=== PATIENT | female | born 1985 | race Caucasian/White ===

== ENCOUNTER → 2017-01-18 | Outpatient (CLI) | payer OTHER ==
--- NOTE | 2017-01-18 16:55 | CR ---
EXAMINATION: Bilateral knees HISTORY: Pain COMPARISON: 10/30/2016 TECHNIQUE: 4 views bilaterally FINDINGS: There is no acute osseous abnormality, dislocation, or fracture identified. Bone mineraliz ation and joint spaces appear normal. Trace suprapatellar joint fluid bilaterally. Minimal osteophyt es are noted. IMPRESSION: Grossly unremarkable knees bilaterally.
== END ==
LOC: MW.CHORTHO 07:41
PROVIDERS: ATTEND Orthopaedic Surgery
DX: M25.561 Pain in right knee (principal); M25.562 Pain in left knee
CPT/HCPCS: 735642650; 73564-50

== ENCOUNTER → 2017-01-22 | Outpatient (CLI) | payer OTHER ==
--- NOTE | 2017-01-22 16:39 | MR ---
EXAMINATION: MR right knee HISTORY: Pain COMPARISON: Radiographs dated 01/18/2017 TECHNIQUE: Multiplanar multisequence images obtained of the right knee without contrast. FINDINGS: The patellar and quadriceps tendons are intact. The ACL and the PCL appear intact. There i s mild truncation of the body of the medial meniscus, otherwise the menisci are intact. The medial a nd lateral collateral ligament complexes appear normal. There is moderate articular cartilage thinni ng along the lateral aspect of the patellofemoral compartment most notable along the lateral facet o f the patella. Subchondral cystic change and edema is noted. There is also a trace articular cartila ge thinning within the medial compartment. There is a trace joint effusion. No suspicious bone marro w signal changes noted. IMPRESSION: 1. Moderate chondromalacia patellae 2. Trace joint effusion. 3. Minimal truncation of the body of the medial meniscus. 4. Mild chondromalacia within the medial compartment.
== END ==
LOC: MW.MRI 12:10
PROVIDERS: ATTEND Orthopaedic Surgery
DX: M25.561 Pain in right knee (principal); M25.562 Pain in left knee; M22.41 Chondromalacia patellae, right knee; M25.461 Effusion, right knee
CPT/HCPCS: 73721-26-RT; 73721-RT

== ENCOUNTER 2017-02-06 16:52 | Emergency (ER) | payer OTHER ==
--- NOTE | 2017-02-06 17:19 | EDM.PDOC ---
ED HPI GENERAL MEDICAL PROBLEM - General Chief Complaint: Upper Extremity Injury/Pain Stated Complaint: PT FELL AND HURT LT ARM Time Seen by Provider: 02/06/17 17:17 Source of Information: Reports: Patient - History of Present Illness INITIAL COMMENTS - FREE TEXT/NARRATIVE: HISTORY AND PHYSICAL: History of present illness: [] Patient presents with left elbow pain /10 after falling in her regard last night denies head injury or loss of consciousness No fever nausea vomiting chills sweats History of tubal ligation Review of systems: As per history of present illness and below otherwise all systems reviewed and negative. Past medical history: As per history of present illness and as reviewed below otherwise noncontributory. Surgical history: As per history of present illness and as reviewed below otherwise noncontributory. Social history: No reported history of drug or alcohol abuse. Family history: As per history of present illness and as reviewed below otherwise noncontributory. Physical exam: HEENT: Atraumatic, normocephalic, pupils reactive, negative for conjunctival pallor or scleral icterus, mucous membranes moist, throat clear, neck supple, nontender, trachea midline. Lungs: Clear to auscultation, breath sounds equal bilaterally, chest nontender. Heart: S1S2, regular, negative for clicks, rubs, or JVD. Abdomen: Soft, nondistended, nontender. Negative for masses or hepatosplenomegaly. Negative for costovertebral tenderness. Pelvis: Stable nontender. Genitourinary: Deferred. Rectal: Deferred. Extremities: Atraumatic, negative for cords or calf pain. Neurovascular unremarkable. Left upper extremity shoulder and wrist on affected elbow full range of motion limited due to pain mild swelling entire limb neurovascularly intact no redness warmth open lesion full range of motion of elbow Neuro: Awake, alert, oriented. Cranial nerves II through XII unremarkable. Cerebellum unremarkable. Motor and sensory unremarkable throughout. Exam nonfocal. Diagnostics: [Left elbow 3 views Therapeutics: [] Rest ice ibuprofen Sling Impression: []left Elbow pain/contusion Definitive disposition and diagnosis as appropriate pending reevaluation and review of above. left elbow Pain Score (Numeric/FACES): 7 - Related Data Allergies Allergy/AdvReac Type Severity Reaction Status Date / Time No Known Allergies Allergy Verified 02/06/17 17:08 Home Meds: Home Meds buPROPion HCl [Wellbutrin Xl] 300 mg PO DAILY 10/07/15 [History] Past Medical History Psychiatric History: Reports: Depression - Past Surgical History Female Surgical History: Reports: Section, D&C, Tubal Ligation Social & Family History - Family History Family Medical History: Noncontributory Endocrine/Metabolic: Reports: Diabetes, type II - Tobacco Use Smoking Status *Q: Current Every Day Smoker Years of Tobacco use: 10 Packs/Tins Daily: 1 Second Hand Smoke Exposure: No - Caffeine Use Caffeine Use: Reports: Coffee, Tea Caffeine Use Comment: 2 cups daily - Recreational Drug Use Recreational Drug Use: No Review of Systems - Review of Systems Review Of Systems: ROS reveals no pertinent complaints other than HPI. Trauma Exam - Physical Exam Exam: See Below Course - Vital Signs Last Recorded V/S: Last Vital Signs Temp 36.8 C 02/06/17 17:09 Pulse 67 02/06/17 17:09 Resp 18 02/06/17 17:09 BP 149/82 H 02/06/17 17:09 Pulse Ox 100 02/06/17 17:09 - Orders/Labs/Meds Orders: Active Orders 24 hr Category Date Time Status Elbow Min 3V Lt [CR] Stat Exams 02/06/17 17:16 Taken Departure - Departure Time of Disposition: 19:08 Disposition: Home, Self-Care 01 Condition: good Clinical Impression: Contusion - Discharge Information Forms: ED Department Discharge Additional Instructions: Sling for comfort Ice 20 minute intervals 3 times daily 7-10 days Ibuprofen 4-800 mg 3 times daily 7-10 days Followup with primary care in 2 weeks sooner as needed The following information is given to patients seen in the emergency department who are being discharged to home. This information is to outline your options for follow-up care. We provide all patients seen in our emergency department with a follow-up referral. The need for follow-up, as well as the timing and circumstances, are variable depending upon the specifics of your emergency department visit. If you don't have a primary care physician on staff, we will provide you with a referral. We always advise you to contact your personal physician following an emergency department visit to inform them of the circumstance of the visit and for follow-up with them and/or the need for any referrals to a consulting specialist. The emergency department will also refer you to a specialist when appropriate. This referral assures that you have the opportunity for follow-up care with a specialist. All of these measure are taken in an effort to provide you with optimal care, which includes your follow-up. Under all circumstances we always encourage you to contact your private physician who remains a resource for coordinating your care. When calling for follow-up care, please make the office aware that this follow-up is from your recent emergency room visit. If for any reason you are refused follow-up, please contact the [facility] emergency department at and asked to speak to the emergency department charge nurse. - My Orders Last 24 Hours: My Active Orders 02/06/17 17:16 Elbow Min 3V Lt [CR] Stat - Assessment/Plan Last 24 Hours: My Active Orders 02/06/17 17:16 Elbow Min 3V Lt [CR] Stat
[2017-02-06 22:34] VITALS: BP 127/79
--- NOTE | 2017-02-07 10:12 | CR ---
EXAM DATE: 02/06/17 PATIENT'S AGE: 31 Patient: ZOHRA KIM Facility: [place], [place] Site . Site : 1985 Study: XRay Extremity elbow [id number]/30/2017 5:54:32 PM Ordering Physician: Lonnie Adhikari Final Report: INDICATION: fall TECHNIQUE: Three views of the left elbow COMPARISON: None FINDINGS: Bones: Alignment is normal. No fractures or bone lesions. Joint spaces: Unremarkable. Soft tissues: Unremarkable. IMPRESSION: No acute bony abnormality. Dictated by Dustin Deleon MD @ 02/06/2017 6:35:13 PM Dictated by: Dustin Deleon MD @ 02/06/2017 18:35:30 (Electronic Signature) Report Signed by Proxy. SYDENHAM HOSPITALGerardo
== END 2017-02-06 19:26 | disposition home or self-care (01) ==
LOC: MW.ED 16:52
DX: S50.02XA Contusion of left elbow, initial encounter (principal); F32.9 Major depressive disorder, single episode, unspecified; F17.210 Nicotine dependence, cigarettes, uncomplicated; Z79.899 Other long term (current) drug therapy; Z98.51 Tubal ligation status; Z98.890 Other specified postprocedural states; W19.XXXA Unspecified fall, initial encounter
CPT/HCPCS: 73080; 99283; A4566; 99282

== ENCOUNTER 2018-10-27 12:07 | Emergency (ER) | payer OTHER ==
[2018-10-27] MEDS ORDERED: Sodium Chloride 0.9% 1,000 ML IV ONE (12:11)
[2018-10-27] MEDS ORDERED: Ketorolac 30 MG/ML SDV IVPUSH ONE (12:12)
[2018-10-27] MEDS ORDERED: Ondansetron 4 MG/2 ML SDV IVPUSH ONE (12:12)
--- NOTE | 2018-10-27 12:34 | EDM.PDOC ---
ED HPI GENERAL MEDICAL PROBLEM - General Chief Complaint: Chest Pain Stated Complaint: CHEST PAIN Time Seen by Provider: 10/27/18 12:11 Source of Information: Reports: Patient History Limitations: Reports: No Limitations - History of Present Illness INITIAL COMMENTS - FREE TEXT/NARRATIVE: HISTORY AND PHYSICAL: History of present illness: Patient is a 33-year-old female who presents to the ED today with sudden onset of sharp chest pain. Patient states she was sitting on her couch about an hour prior to arrival to the ED when suddenly she felt a sharp pressure in her left upper chest. She states the sharp radiated down her left arm and up into her face where she felt like "her face went numb". Patient states that in the ED today she does not have that numb feeling or the pain in the arm but still has a sharp chest pain. She rates the chest pain a 5 out of 10. Sensation states she 's never had pain like this before. Patient does say that she has had panic attacks in the past but this feels different to her. Patient states she is not able to re-create her pain through any position or pressing upper chest. She is not able to illicit the pain if she takes a deep breath. Patient denies shortness of breath, headache, visual changes, difficulties breathing, diaphoresis, nausea, vomiting, fever, chills, change in bowel habits , or all other GI of symptoms. She does have a history of anxiety, depression, and GERD. She is currently on medications for these for which she sees her primary care provider, Dr. Lai. Review of systems: As per history of present illness and below otherwise all systems reviewed and negative. Past medical history: As per history of present illness and as reviewed below otherwise noncontributory. Surgical history: As per history of present illness and as reviewed below otherwise noncontributory. Social history: See social history for further information Family history: As per history of present illness and as reviewed below otherwise noncontributory. Physical exam: General: Patient is alert, oriented, and in no acute distress. She is mildly anxious appearing but is lying comfortably on exam table. HEENT: Atraumatic, normocephalic, pupils equal and reactive bilaterally, negative for conjunctival pallor or scleral icterus, mucous membranes moist, TMs normal bilaterally, throat clear, neck supple, nontender, trachea midline. No drooling or trismus noted. No meningeal signs. No hot potato voice noted. Lungs: Clear to auscultation, breath sounds equal bilaterally, chest nontender. Heart: S1S2, regular rate and rhythm without overt murmur Abdomen: Obese, soft, nondistended, nontender. Negative for masses or hepatosplenomegaly. Negative for costovertebral tenderness. Pelvis: Stable nontender. Genitourinary: Deferred. Rectal: Deferred. Skin: Intact, warm, dry. No lesions or rashes noted. Extremities: Atraumatic, negative for cords or calf pain. Neurovascular unremarkable. Neuro: Awake, alert, oriented. Cranial nerves II through XII unremarkable. Cerebellum unremarkable. Motor and sensory unremarkable throughout. Exam nonfocal. Notes: On exam, patient is mildly anxious appearing but otherwise unremarkable exam. Will work up for cardio/chest pain. Lab work is unremarkable. Chest x-ray shows no acute findings. Patient continues to have chest pain, did not have relief with the nitroglycerin. Declined after one tablet. Admission was offered to the patient, at this time she declines. She does state she does still feel anxious, when dose of Ativan given by mouth. She does have a ride home. She will follow closely with her primary care provider, Dr. Lai. Supportive care measures were reviewed and discussed. Voices understanding and is agreeable to plan of care. Denies any further questions or concerns at this time. Diagnostics: CBC, CMP, EKG, troponin, chest x-ray, tsh, ua, urine hcg Therapeutics: Toradol, Zofran, Saline, Ativan, Nitropaste Prescription: None Impression: 1. Chest pain, unspecified 2. Anxiety 3. Early UTI Plan: 1. Please start a baby aspirin 81 mg once daily. Increase your oral fluids. You can take Tylenol or ibuprofen as needed for pain or discomfort. 2. Please use your home anxiety medication as needed as we discussed. Prescription for an antibiotic to treat UTI has been given to you, fill and take as we discussed. 3. Follow-up with your primary care provider (Dr. Ruth) in the next 1-2 days. Return to the ED as needed and as discussed. Definitive disposition and diagnosis as appropriate pending reevaluation and review of above. chest Pain Score (Numeric/FACES): 5 - Related Data Allergies Allergy/AdvReac Type Severity Reaction Status Date / Time No Known Allergies Allergy Verified 10/27/18 12:09 Home Meds: Home Meds buPROPion HCl [Wellbutrin Xl] 300 mg PO DAILY 10/07/15 [History] Escitalopram [Lexapro] 10 mg PO DAILY 08/05/18 [History] Omeprazole 40 mg PO DAILY 08/05/18 [History] Past Medical History - Past Health History Medical/Surgical History: Denies Medical/Surgical History HEENT History: Reports: None Cardiovascular History: Reports: None Gastrointestinal History: Reports: None Genitourinary History: Reports: None 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: , 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 Musculoskeletal History: Reports: None Neurological History: Reports: None Psychiatric History: Reports: Depression Endocrine/Metabolic History: Reports: None Hematologic History: Reports: None Immunologic History: Reports: None Oncologic (Cancer) History: Reports: None Dermatologic History: Reports: None - Infectious Disease History Infectious Disease History: Reports: Chicken Pox - Past Surgical History Head Surgeries/Procedures: Reports: None HEENT Surgical History: Reports: Adenoidectomy, Tonsillectomy Cardiovascular Surgical History: Reports: None Respiratory Surgical History: Reports: None GI Surgical History: Reports: Appendectomy, Cholecystectomy Female Surgical History: Reports: Section, D&C, Tubal Ligation Endocrine Surgical History: Reports: None Neurological Surgical History: Reports: None Musculoskeletal Surgical History: Reports: None Oncologic Surgical History: Reports: None Dermatological Surgical History: Reports: None Social & Family History - Family History Family Medical History: Noncontributory Endocrine/Metabolic: Reports: Diabetes, type II - Tobacco Use Smoking Status *Q: Current Every Day Smoker Years of Tobacco use: 15 Packs/Tins Daily: 0.4 - Caffeine Use Caffeine Use: Reports: Coffee, Tea Caffeine Use Comment: 2 cups daily - Recreational Drug Use Recreational Drug Use: No ED ROS GENERAL - Review of Systems Review Of Systems: ROS reveals no pertinent complaints other than HPI. ED EXAM, GENERAL - Physical Exam Exam: See Below (See dictation) Course - Vital Signs Last Recorded V/S: Last Vital Signs Temp 98.6 F 10/27/18 12:10 Pulse 84 10/27/18 13:28 Resp 18 10/27/18 12:10 BP 158/97 H 10/27/18 13:28 Pulse Ox 99 10/27/18 12:10 - Orders/Labs/Meds Orders: Active Orders 24 hr Category Date Time Status EKG Documentation Completion [RC] STAT Care 10/27/18 12:11 Active EKG Documentation Completion [RC] STAT Care 10/27/18 12:37 Active CULTURE URINE [RM] Stat Lab 10/27/18 13:38 Received Nitroglycerin [Nitrostat] Med 10/27/18 13:13 Active 0.4 mg SL Q5M PRN Medication Orders Nitroglycerin (Nitrostat) 0.4 mg SL Q5M PRN PRN Reason: Chest Pain Last Admin: 10/27/18 13:22 Dose: 0.4 mg Labs: Laboratory Tests 10/27/18 10/27/18 10/27/18 Range/Units 12:23 12:23 13:33 WBC 9.71 (4.0-11.0) K/uL RBC 4.45 (4.30-5.90) M/uL Hgb 13.0 (12.0-16.0) g/dL Hct 39.3 (36.0-46.0) % MCV 88.3 (80.0-98.0) fL MCH 29.2 (27.0-32.0) pg MCHC 33.1 (31.0-37.0) g/dL RDW Std Deviation 44.8 (28.0-62.0) fl RDW Coeff of Amos 14 (11.0-15.0) % Plt Count 324 (150-400) K/uL MPV 10.10 (7.40-12.00) fL Neut % (Auto) 64.2 (48.0-80.0) % Lymph % (Auto) 27.5 (16.0-40.0) % Hodgeman % (Auto) 6.8 (0.0-15.0) % Eos % (Auto) 1.2 (0.0-7.0) % Baso % (Auto) 0.3 (0.0-1.5) % Neut # (Auto) 6.2 H (1.4-5.7) K/uL Lymph # (Auto) 2.7 H (0.6-2.4) K/uL Hodgeman # (Auto) 0.7 (0.0-0.8) K/uL Eos # (Auto) 0.1 (0.0-0.7) K/uL Baso # (Auto) 0.0 (0.0-0.1) K/uL Nucleated RBC % 0.0 /100WBC Nucleated RBCs # 0 K/uL Sodium 136 (136-145) mmol/L Potassium 4.0 (3.5-5.1) mmol/L Chloride 103 (98-107) mmol/L Carbon Dioxide 25.5 (21.0-32.0) mmol/L BUN 15 (7.0-18.0) mg/dL Creatinine 0.9 (0.6-1.0) mg/dL Est Cr Clr Drug Dosing 88.01 mL/min Estimated GFR (MDRD) > 60.0 ml/min Glucose 102 (74-106) mg/dL Calcium 9.1 (8.5-10.1) mg/dL Total Bilirubin 0.3 (0.2-1.0) mg/dL AST 13 L (15-37) IU/L ALT 19 (14-63) IU/L Alkaline Phosphatase 65 (46-116) U/L Troponin I < 0.050 (0.000-0.056) ng/mL Total Protein 7.2 (6.4-8.2) g/dL Albumin 3.7 (3.4-5.0) g/dL Globulin 3.5 (2.6-4.0) g/dL Albumin/Globulin Ratio 1.1 (0.9-1.6) TSH 3rd Generation 2.41 (0.36-3.74) uIU/mL Urine Color Urine Appearance Urine pH (5.0-8.0) Ur Specific [place] (1.001-1.035) Urine Protein (NEGATIVE) mg/dL Urine Glucose (UA) (NEGATIVE) mg/dL Urine Ketones (NEGATIVE) mg/dL Urine Occult Blood (NEGATIVE) Urine Nitrite (NEGATIVE) Urine Bilirubin (NEGATIVE) Urine Urobilinogen (<2.0) EU/dL Ur Leukocyte Esterase (NEGATIVE) Urine RBC (0-2/HPF) Urine WBC (0-5/HPF) Ur Epithelial Cells (NONE-FEW) Urine Bacteria (NEGATIVE) Urine Mucus (NONE-MOD) Urine HCG, Qual NEGATIVE (NEGATIVE) 10/27/18 Range/Units 13:38 WBC (4.0-11.0) K/uL RBC (4.30-5.90) M/uL Hgb (12.0-16.0) g/dL Hct (36.0-46.0) % MCV (80.0-98.0) fL MCH (27.0-32.0) pg MCHC (31.0-37.0) g/dL RDW Std Deviation (28.0-62.0) fl RDW Coeff of Amos (11.0-15.0) % Plt Count (150-400) K/uL MPV (7.40-12.00) fL Neut % (Auto) (48.0-80.0) % Lymph % (Auto) (16.0-40.0) % Hodgeman % (Auto) (0.0-15.0) % Eos % (Auto) (0.0-7.0) % Baso % (Auto) (0.0-1.5) % Neut # (Auto) (1.4-5.7) K/uL Lymph # (Auto) (0.6-2.4) K/uL Hodgeman # (Auto) (0.0-0.8) K/uL Eos # (Auto) (0.0-0.7) K/uL Baso # (Auto) (0.0-0.1) K/uL Nucleated RBC % /100WBC Nucleated RBCs # K/uL Sodium (136-145) mmol/L Potassium (3.5-5.1) mmol/L Chloride (98-107) mmol/L Carbon Dioxide (21.0-32.0) mmol/L BUN (7.0-18.0) mg/dL Creatinine (0.6-1.0) mg/dL Est Cr Clr Drug Dosing mL/min Estimated GFR (MDRD) ml/min Glucose (74-106) mg/dL Calcium (8.5-10.1) mg/dL Total Bilirubin (0.2-1.0) mg/dL AST (15-37) IU/L ALT (14-63) IU/L Alkaline Phosphatase (46-116) U/L Troponin I (0.000-0.056) ng/mL Total Protein (6.4-8.2) g/dL Albumin (3.4-5.0) g/dL Globulin (2.6-4.0) g/dL Albumin/Globulin Ratio (0.9-1.6) TSH 3rd Generation (0.36-3.74) uIU/mL Urine Color YELLOW Urine Appearance CLEAR Urine pH 6.0 (5.0-8.0) Ur Specific [place] <= 1.005 (1.001-1.035) Urine Protein NEGATIVE (NEGATIVE) mg/dL Urine Glucose (UA) NEGATIVE (NEGATIVE) mg/dL Urine Ketones NEGATIVE (NEGATIVE) mg/dL Urine Occult Blood TRACE-INTACT H (NEGATIVE) Urine Nitrite NEGATIVE (NEGATIVE) Urine Bilirubin NEGATIVE (NEGATIVE) Urine Urobilinogen 0.2 (<2.0) EU/dL Ur Leukocyte Esterase SMALL H (NEGATIVE) Urine RBC 0-2 (0-2/HPF) Urine WBC 2-4 (0-5/HPF) Ur Epithelial Cells FEW (NONE-FEW) Urine Bacteria FEW (NEGATIVE) Urine Mucus FEW (NONE-MOD) Urine HCG, Qual (NEGATIVE) Meds: Medications Generic Name Dose Route Start Last Admin Trade Name Freq PRN Reason Stop Dose Admin Nitroglycerin 0.4 mg 10/27/18 13:13 10/27/18 13:22 Nitrostat SL 0.4 mg Q5M PRN Administration Chest Pain Discontinued Medications Generic Name Dose Route Start Last Admin Trade Name Freq PRN Reason Stop Dose Admin Sodium Chloride 1,000 mls @ 999 mls/hr 10/27/18 12:11 10/27/18 12:21 Normal Saline IV 10/27/18 13:11 999 mls/hr STAT ONE Administration Ketorolac Tromethamine 30 mg 10/27/18 12:12 10/27/18 12:21 Toradol IVPUSH 10/27/18 12:13 30 mg ONETIME ONE Administration Lorazepam 0.5 mg 10/27/18 13:32 10/27/18 13:48 Ativan PO 10/27/18 13:33 0.5 mg ONETIME ONE Administration Ondansetron HCl 4 mg 10/27/18 12:12 10/27/18 12:21 Zofran IVPUSH 10/27/18 12:13 4 mg ONETIME ONE Administration Departure - Departure Time of Disposition: 14:10 Disposition: Home, Self-Care 01 Clinical Impression: Nonspecific chest pain, Urinary tract infection, Anxiety Instructions: Nonspecific Chest Pain, [id number] Referrals: PCP,Unknown [Primary Care Provider] - Forms: ED Department Discharge Additional Instructions: The following information is given to patients seen in the emergency department who are being discharged to home. This information is to outline your options for follow-up care. We provide all patients seen in our emergency department with a follow-up referral. The need for follow-up, as well as the timing and circumstances, are variable depending upon the specifics of your emergency department visit. If you don't have a primary care physician on staff, we will provide you with a referral. We always advise you to contact your personal physician following an emergency department visit to inform them of the circumstance of the visit and for follow-up with them and/or the need for any referrals to a consulting specialist. The emergency department will also refer you to a specialist when appropriate. This referral assures that you have the opportunity for follow-up care with a specialist. All of these measure are taken in an effort to provide you with optimal care, which includes your follow-up. Under all circumstances we always encourage you to contact your private physician who remains a resource for coordinating your care. When calling for follow-up care, please make the office aware that this follow-up is from your recent emergency room visit. If for any reason you are refused follow-up, please contact the [facility] Emergency Department at and asked to speak to the emergency department charge nurse. [facility] Primary Care: Cardiology (Dr Rutledge) [address] [place] [address] [place] [address] 1. Please start a baby aspirin 81 mg once daily. Increase your oral fluids. You can take Tylenol or ibuprofen as needed for pain or discomfort. 2. Please use your home anxiety medication as needed as we discussed. Prescription for an antibiotic to treat UTI has been given to you, fill and take as we discussed. 3. Follow-up with your primary care provider (Dr. Ruth) in the next 1-2 days. Return to the ED as needed and as discussed. - My Orders Last 24 Hours: My Active Orders 10/27/18 12:11 EKG Documentation Completion [RC] STAT 10/27/18 12:37 EKG Documentation Completion [RC] STAT 10/27/18 13:13 Nitroglycerin [Nitrostat] 0.4 mg SL Q5M PRN 10/27/18 13:38 CULTURE URINE [RM] Stat - Assessment/Plan Last 24 Hours: My Active Orders 10/27/18 12:11 EKG Documentation Completion [RC] STAT 10/27/18 12:37 EKG Documentation Completion [RC] STAT 10/27/18 13:13 Nitroglycerin [Nitrostat] 0.4 mg SL Q5M PRN 10/27/18 13:38 CULTURE URINE [RM] Stat
[2018-10-27 12:58] LABS: CHLORIDE,CL 103 mmol/L (98-107); SODIUM,NA 136 mmol/L (136-145)
[2018-10-27] MEDS ORDERED: Nitroglycerin 0.4 MG Tab.SL SL PRN (13:13)
[2018-10-27] MEDS ORDERED: LORazepam 0.5 MG Tab PO ONE (13:32)
--- NOTE | 2018-10-27 13:44 | CR ---
HISTORY: Chest pain. FINDINGS: Single AP view of the chest is provided. The lung volumes appear slightly diminished. The lungs are clear and there is no evidence for pleural effusion or pneumothorax. Cardiac silhouette size appears enlarged but this could be due to a magnification from AP technique. IMPRESSION: Clear lungs. Dictated by Johann Keller MD @ Oct 27 2018 1:43PM Signed by Dr. Johann Keller @ Oct 27 2018 1:44PM
[2018-10-27 14:42] VITALS: BP 141/92
== END 2018-10-27 14:38 | disposition home or self-care (01) ==
LOC: MW.ED 12:07
DX: R07.9 Chest pain, unspecified (principal); F41.9 Anxiety disorder, unspecified; N39.0 Urinary tract infection, site not specified; F32.9 Major depressive disorder, single episode, unspecified; F17.210 Nicotine dependence, cigarettes, uncomplicated; Z79.899 Other long term (current) drug therapy
CPT/HCPCS: 36415; 71045; 80053; 81001; 81025; 84443; 84484; 85025; 87086; 93005; 96361; 96374; 96375; 99285; A9270; J1885; J2405; J7040

== ENCOUNTER 2021-07-11 08:54 | Emergency (ER) | payer BC, OTHER ==
[2021-07-11] MEDS ORDERED: Sodium Chloride 0.9% 2.5 ML Syringe FLUSH PRN (09:34)
[2021-07-11] MEDS ORDERED: Sodium Chloride 0.9% 10 ML Syringe FLUSH PRN (09:34)
[2021-07-11] MEDS ORDERED: Ondansetron 4 MG/2 ML SDV IVPUSH ONE (09:35)
[2021-07-11] MEDS ORDERED: Alum Hydro/Mag Hydro/Simeth XS 15 ML, Lidocaine 2% 5 ML PO ONE ×2 (09:35)
--- NOTE | 2021-07-11 09:38 | EDM.PDOC ---
ED HPI GENERAL MEDICAL PROBLEM - General Chief Complaint: Abdominal Pain Stated Complaint: UPPER ABDOMINAL PAIN Time Seen by Provider: 07/11/21 09:28 - History of Present Illness INITIAL COMMENTS - FREE TEXT/NARRATIVE: 35-year-old female history of hypertension status post cholecystectomy in 2006 also status post appendectomy and partial hysterectomy who is presenting with epigastric pain. Patient woke up with sharp epigastric pain radiating to the right upper quadrant approximately 48 hours ago. It is associated with nausea but no vomiting. Patient has chronic and stable diarrhea. No lower abdominal symptoms and no fever. Symptoms worsen when she sits up they also worsen with any p.o. intake. This morning she tried to have her usual coffee and became incredibly nauseous and her pain worsened as she was trying to drink it. Patient does drink red wine regularly approximately 3 glasses each day. Pain currently moderate Right Upper Abdomen Pain Score (Numeric/FACES): 5 4 Pain Score (Numeric/FACES): 4 - Related Data Allergies Allergy/AdvReac Type Severity Reaction Status Date / Time No Known Allergies Allergy Verified 10/27/18 12:09 Home Meds: Home Meds buPROPion HCL [Wellbutrin Xl] 300 mg PO DAILY 10/07/15 [History] Escitalopram [Lexapro] 10 mg PO DAILY 08/05/18 [History] Omeprazole 40 mg PO DAILY 08/05/18 [History] Dicyclomine [Bentyl] 20 mg PO QIDACANDBED PRN 7 Days #28 tab 07/11/21 [Rx] Omeprazole 20 mg PO DAILY #7 javon. 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 Musculoskeletal History: Reports: None Neurological History: Reports: None Psychiatric History: Reports: Depression Endocrine/Metabolic History: Reports: None Hematologic History: Reports: None Immunologic History: Reports: None Oncologic (Cancer) History: Reports: None Dermatologic History: Reports: None - Infectious Disease History Infectious Disease History: Reports: Chicken Pox - Past Surgical History Head Surgeries/Procedures: Reports: None HEENT Surgical History: Reports: Adenoidectomy, Tonsillectomy Cardiovascular Surgical History: Reports: None Respiratory Surgical History: Reports: None GI Surgical History: Reports: Appendectomy, Cholecystectomy Female Surgical History: Reports: Section, D&C, Tubal Ligation Endocrine Surgical History: Reports: None Neurological Surgical History: Reports: None Musculoskeletal Surgical History: Reports: None Oncologic Surgical History: Reports: None Dermatological Surgical History: Reports: None Social & Family History - Family History Family Medical History: No Pertinent Family History Endocrine/Metabolic: Reports: Diabetes, type II - Caffeine Use Caffeine Use: Reports: Coffee, Tea Caffeine Use Comment: 2 cups daily ED ROS GENERAL - Review of Systems Review Of Systems: See Below Free Text/Narrative/Comment: General: No fever. Skin: No rash. Eyes: No vision problems. ENT: No sore throat. Neck: No neck stiffness. Respiratory: No shortness of breath. Cardiac: No chest pain. Gastrointestinal: Per HPI Urinary: No dysuria. Musculoskeletal: No myalgias/arthralgias. Neurologic: No headache. ED EXAM, GENERAL - Physical Exam Exam: See Below Free Text/Narrative:: General Appearance: No acute distress, appears comfortable Skin: No rash HEENT: Normocephalic/atraumatic, sclera anicteric, mucous membranes moist Neck: Normal range of motion Chest and Lungs: Bilateral breath sounds, clear to auscultation Cardiovascular: Regular rate and rhythm Abdomen: Soft, epigastric and right upper quadrant tenderness without guarding or rebound Musculoskeletal: No edema or tenderness Neurologic: Awake, alert, no obvious deficits, moving all extremities Psychiatric: Appropriate, cooperative #1 Interpretation EKG Date: 07/11/21 Time: 10:46 EKG Interpretation Comments: Sinus rhythm rate of 76 normal axis and intervals no acute ischemia normal EKG Course - Vital Signs Last Recorded V/S: Last Vital Signs Temp 96.8 F L 07/11/21 09:33 Pulse 69 07/11/21 11:12 Resp 16 07/11/21 11:12 BP 124/71 07/11/21 11:12 Pulse Ox 98 07/11/21 11:12 - Orders/Labs/Meds Orders: Active Orders 24 hr Category Date Time Status Sodium Chloride 0.9% [Saline Flush] Med 07/11/21 09:34 Active 10 ml FLUSH ASDIRECTED PRN Sodium Chloride 0.9% [Saline Flush] Med 07/11/21 09:34 Active 2.5 ml FLUSH ASDIRECTED PRN Saline Lock Insert [OM.PC] Stat Oth 07/11/21 09:34 Ordered Medication Orders Sodium Chloride (Sodium Chloride 0.9% 10 Ml Syringe) 10 ml FLUSH ASDIRECTED PRN PRN Reason: Keep Vein Open Last Admin: 07/11/21 09:48 Dose: 10 ml Documented by: JANELLE Sodium Chloride (Sodium Chloride 0.9% 2.5 Ml Syringe) 2.5 ml FLUSH ASDIRECTED PRN PRN Reason: Keep Vein Open Last Admin: 07/11/21 09:48 Dose: 2.5 ml Documented by: JANELLE Labs: Laboratory Tests 07/11/21 07/11/21 Range/Units 10:10 10:10 WBC 12.52 H (4.0-11.0) K/uL RBC 4.47 (4.30-5.90) M/uL Hgb 12.9 (12.0-16.0) g/dL Hct 39.3 (36.0-46.0) % MCV 87.9 (80.0-98.0) fL MCH 28.9 (27.0-32.0) pg MCHC 32.8 (31.0-37.0) g/dL RDW Std Deviation 47.5 (28.0-62.0) fl RDW Coeff of Amos 15 (11.0-15.0) % Plt Count 413 H (150-400) K/uL MPV 10.20 (7.40-12.00) fL Neut % (Auto) 71.2 (48.0-80.0) % Lymph % (Auto) 21.0 (16.0-40.0) % [place] % (Auto) 6.0 (0.0-15.0) % Eos % (Auto) 1.4 (0.0-7.0) % Baso % (Auto) 0.4 (0.0-1.5) % Neut # (Auto) 8.9 H (1.4-5.7) K/uL Lymph # (Auto) 2.6 H (0.6-2.4) K/uL [place] # (Auto) 0.8 (0.0-0.8) K/uL Eos # (Auto) 0.2 (0.0-0.7) K/uL Baso # (Auto) 0.1 (0.0-0.1) K/uL Nucleated RBC % 0.0 /100WBC Nucleated RBCs # 0 K/uL Sodium 135 L (136-145) mmol/L Potassium 4.4 (3.5-5.1) mmol/L Chloride 100 (98-107) mmol/L Carbon Dioxide 26.1 (21.0-32.0) mmol/L BUN 17 (7.0-18.0) mg/dL Creatinine 1.0 (0.6-1.0) mg/dL Est Cr Clr Drug Dosing 77.70 mL/min Estimated GFR (MDRD) > 60.0 ml/min Glucose 108 H (74-106) mg/dL Calcium 8.7 (8.5-10.1) mg/dL Total Bilirubin 0.3 (0.2-1.0) mg/dL AST 24 (15-37) IU/L ALT 44 (14-63) IU/L Alkaline Phosphatase 69 (46-116) U/L Troponin I < 0.050 (0.000-0.056) ng/mL Total Protein 7.8 (6.4-8.2) g/dL Albumin 3.3 L (3.4-5.0) g/dL Globulin 4.5 H (2.6-4.0) g/dL Albumin/Globulin Ratio 0.7 L (0.9-1.6) Lipase 50 L (73-393) U/L Meds: Medications Generic Name Dose Route Start Last Admin Trade Name Freq PRN Reason Stop Dose Admin Sodium Chloride 10 ml 07/11/21 09:34 07/11/21 09:48 Sodium Chloride 0.9% 10 Ml Syringe FLUSH 10 ml ASDIRECTED PRN Administration Keep Vein Open Sodium Chloride 2.5 ml 07/11/21 09:34 07/11/21 09:48 Sodium Chloride 0.9% 2.5 Ml Syringe FLUSH 2.5 ml ASDIRECTED PRN Administration Keep Vein Open Discontinued Medications Generic Name Dose Route Start Last Admin Trade Name Freq PRN Reason Stop Dose Admin Alum Fowler/Mag Fowler/Simeth XS 0 ml 07/11/21 09:35 07/11/21 09:47 15 ml/ Lidocaine HCl 5 ml PO 07/11/21 09:36 20 each ONETIME ONE Administration Iopamidol 100 ml 07/11/21 12:05 07/11/21 12:06 Iopamidol 755 Mg/Ml 500 Ml Multipack Bottle IVPUSH 07/11/21 12:06 100 ml ONETIME STA Administration Morphine Sulfate 4 mg 07/11/21 10:53 07/11/21 11:10 Morphine 4 Mg/Ml Vial IVPUSH 07/11/21 10:54 4 mg ONETIME ONE Administration Ondansetron HCl 4 mg 07/11/21 09:35 07/11/21 09:47 Ondansetron 4 Mg/2 Ml Sdv IVPUSH 07/11/21 09:36 4 mg ONETIME ONE Administration Departure - Departure Time of Disposition: 13:19 Disposition: Home, Self-Care 01 Condition: Good Clinical Impression: Gastroenteritis - Discharge Information *PRESCRIPTION DRUG MONITORING PROGRAM REVIEWED*: Not Applicable *COPY OF PRESCRIPTION DRUG MONITORING REPORT IN PATIENT HAMIDA: Not Applicable Prescriptions: Dicyclomine [Bentyl] 20 mg PO QIDACANDBED PRN 7 Days #28 tab PRN Reason: Abdominal Pain Omeprazole 20 mg PO DAILY #7 capsule. Ondansetron [Zofran ODT] 4 mg PO Q6H PRN 7 Days #21 tab.dis PRN Reason: Nausea Instructions: Abdominal Pain, Adult, [id number] Referrals: Bekah Marie DO [Primary Care Provider] - Forms: ED Department Discharge Additional Instructions: Your labs today were good showed no abnormalities in your liver your pancreas. The chest x-ray showed no signs of pneumonia or problems with your heart or lungs. The CT scan showed no signs of a bowel obstruction or any severe infectious process in your abdomen. Because this evaluation has been reassuring it is most likely that your symptoms are due to viral enteritis. Typically the symptoms run their course over the few days. I encourage you to take the acid suppression medicine for the next week as well as the Zofran as you need to for nausea and the bentyl to help with your abdominal pain. I encourage you to avoid alcohol and caffeine and stick with more basic and bland foods. If your symptoms worsen or you have any other new symptoms that concern you please call your doctor or return to the ER. Otherwise please follow-up with your primary care doctor. If you do not have a primary care doctor you can follow-up at one of the primary clinics listed below. [facility] [address] [place] [id number] [facility] [address] [place] [id number] The following information is given to patients seen in the emergency department who are being discharged to home. This information is to outline your options for follow-up care. We provide all patients seen in our emergency department with a follow-up referral. The need for follow-up, as well as the timing and circumstances, are variable depending upon the specifics of your emergency department visit. If you don't have a primary care physician on staff, we will provide you with a referral. We always advise you to contact your personal physician following an emergency department visit to inform them of the circumstance of the visit and for follow-up with them and/or the need for any referrals to a consulting specialist. The emergency department will also refer you to a specialist when appropriate. This referral assures that you have the opportunity for follow-up care with a specialist. All of these measure are taken in an effort to provide you with optimal care, which includes your follow-up. Under all circumstances we always encourage you to contact your private physician who remains a resource for coordinating your care. When calling for follow-up care, please make the office aware that this follow-up is from your recent emergency room visit. If for any reason you are refused follow-up, please contact the [facility] Emergency Department at and asked to speak to the emergency department charge nurse. Sepsis Event Note (ED) - Focused Exam Vital Signs: Vital Signs Temp Pulse Resp BP Pulse Ox 07/11/21 11:12 69 16 124/71 98 07/11/21 09:33 96.8 F L 07/11/21 09:32 96.3 F L 88 18 154/89 H 99 - My Orders Last 24 Hours: My Active Orders 07/11/21 09:34 Sodium Chloride 0.9% [Saline Flush] 10 ml FLUSH ASDIRECTED PRN Sodium Chloride 0.9% [Saline Flush] 2.5 ml FLUSH ASDIRECTED PRN Saline Lock Insert [OM.PC] Stat - Assessment/Plan Last 24 Hours: My Active Orders 07/11/21 09:34 Sodium Chloride 0.9% [Saline Flush] 10 ml FLUSH ASDIRECTED PRN Sodium Chloride 0.9% [Saline Flush] 2.5 ml FLUSH ASDIRECTED PRN Saline Lock Insert [OM.PC] Stat Assessment:: 35-year-old female presenting with signs and symptoms that seem most consistent with gastritis or peptic ulcer disease. Zofran will be given followed by GI cocktail and will assess response. Pancreatitis is a consideration as well hepatitis is a consideration though felt less likely CBC, CMP, lipase are pending. Patient status post appendectomy hysterectomy no lower abdominal symptoms that would suggest gynecologic pathology. No cough no fever though inferior pulmonary symptoms of been considered as well and chest x-ray pending. Cardiac symptoms very unlikely but given her hypertension and her age EKG and troponin pending. Symptoms of been constant for 2 days so single troponin would be sufficient to rule out ACS. 1320: Labs showed minimal leukocytosis but are otherwise unremarkable with no transaminitis. CT scan shows no acute findings. Patient's pain is somewhat improved but still present. Given the negative work-up at this point I would favor a gastroenteritis as the cause of the patient's symptoms. Recommended twice daily acid suppression Zofran as needed for nausea and primary care follow-up. No negation for admission at this point.
--- NOTE | 2021-07-11 10:36 | CR ---
INDICATION: Epigastric pain. TECHNIQUE: Chest 2 view. COMPARISON: Chest radiograph 10/27/2018. FINDINGS: No focal consolidation, pleural effusion, or pneumothorax. Normal heart size and pulmonary vascularity. The bones are unremarkable. IMPRESSION: No acute cardiopulmonary findings. Dictated by Ghazal Giordano MD @ 07/11/2021 10:34:31 AM (Electronically Signed)
[2021-07-11] MEDS ORDERED: Morphine 4 MG/ML VIAL IVPUSH ONE (10:53)
[2021-07-11 10:54] LABS: BLOOD UREA NITROGEN,BUN 17 mg/dL (7.0-18.0); CARBON DIOXIDE,CO2 26.1 mmol/L (21.0-32.0); CHLORIDE,CL 100 mmol/L (98-107); GLUCOSE RANDOM 108 mg/dL (74-106); LIPASE 50 U/L (73-393); POTASSIUM,K 4.4 mmol/L (3.5-5.1); SODIUM,NA 135 mmol/L (136-145)
[2021-07-11] MEDS ORDERED: Iopamidol 755 MG/ML 500 ML Multipack Bottle IVPUSH STA (12:05)
--- NOTE | 2021-07-11 13:05 | CT ---
INDICATION: Abdominal pain. TECHNIQUE: CT of the abdomen and pelvis performed without and with 100 cc Isovue 370 IV contrast. Coronal and sagittal reconstructions. COMPARISON: None. FINDINGS: The liver is enlarged measuring 20.5 cm in length. Moderate diffuse hepatic steatosis. Cholecystectomy. No biliary dilation. Calcified splenic granuloma. The pancreas and adrenal glands are negative. Hepatic and portal veins are patent. Symmetric enhancement of the kidneys. No hydronephrosis or ureteral dilation. No obstructing urinary calculi. Underdistended urinary bladder. Hysterectomy. No abnormality in the adnexa. No bowel dilation. Mild sigmoid diverticulosis without evidence of diverticulitis. Appendectomy. No intraperitoneal free air or fluid. Tiny fat containing umbilical hernia. 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 No lymphadenopathy. The bones are unremarkable. The lung bases are clear. IMPRESSION: 1. No acute findings in the abdomen or pelvis. 2. Hepatomegaly with moderate diffuse hepatic steatosis. Please note that all CT scans at this facility use dose modulation, iterative reconstruction, and/or weight-based dosing when appropriate to reduce radiation dose to as low as reasonably achievable. Dictated by Ghazal Giordano MD @ 07/11/2021 1:04:21 PM (Electronically Signed)
[2021-07-11 14:00] VITALS: BP 118/76; PULSE 87
== END 2021-07-11 14:00 | disposition home or self-care (01) ==
LOC: MW.ED 08:54
DX: K52.9 Noninfective gastroenteritis and colitis, unspecified (principal); Z90.49 Acquired absence of other specified parts of digestive tract
CPT/HCPCS: 36415; 71046; 74178; 80053; 83690; 84484; 85025; 93005; 96374; 96375; 99284; A9270; J2270; J2405; Q9967

== ENCOUNTER 2024-01-08 10:37 | Emergency (ER) | payer BC ==
[2024-01-08 11:45] LABS: BASOPHILS ABSOLUTE AUTO 0.07 K/uL (0.00-0.20); BASOPHILS PERCENT AUTO 0.7 % (0.0-1.0); EOSINOPHILS ABSOLUTE AUTO 0.11 K/uL (0.00-0.45); HEMATOCRIT 39.7 % (37.0-47.0); HEMOGLOBIN 13.3 g/dL (12.0-16.0); IMMATURE GRAN ABSOLUTE AUTO 0.03 K/uL (0.00-0.05); IMMATURE GRAN PERCENT AUTO 0.3 % (0.0-0.4); LYMPHOCYTES ABSOLUTE AUTO 2.14 K/uL (1.00-4.80); LYMPHOCYTES PERCENT AUTO 20.2 % (24.0-44.0); MEAN CORPUSCULAR HGB CONC 33.5 g/dL (32.0-36.0); MEAN CORPUSCULAR VOLUME 89.4 fL (83.0-99.0); MEAN PLATELET VOLUME 10.1 fL (9.4-12.3); MONOCYTES ABSOLUTE AUTO 0.61 K/uL (0.00-0.80); MONOCYTES PERCENT AUTO 5.8 % (0.0-8.0); NEUTROPHILS ABSOLUTE AUTO 7.62 K/uL (1.80-7.70); PLATELET COUNT,PLT 323 K/uL (150-400); RED BLOOD CELL COUNT 4.44 M/uL (4.10-5.30); WHITE BLOOD CELL COUNT,WBC 10.58 K/uL (3.9-11.3)
[2024-01-08] MEDS: Ketorolac 30 MG/ML SDV IVPUSH STA (11:46)
[2024-01-08] MEDS: Sodium Chloride 0.9% 1,000 ML IV STA (11:46)
[2024-01-08] MEDS: Sodium Chloride 0.9% 2.5 ML Syringe FLUSH PRN (11:46)
[2024-01-08] MEDS: Sodium Chloride 0.9% 10 ML Syringe FLUSH PRN (11:46)
[2024-01-08 12:14] LABS: A/G RATIO 0.9 (0.9-1.6); ALBUMIN 3.7 g/dL (3.4-5.0); BILIRUBIN TOTAL 0.4 mg/dL (0.2-1.0); CALCIUM 9.4 mg/dL (8.5-10.1); CARBON DIOXIDE,CO2 29.6 mmol/L (21.0-32.0); CREATININE 0.9 mg/dL (0.6-1.0); EST CRCL DRUG DOSING (CG) 83.82 mL/min; POTASSIUM,K 4.2 mmol/L (3.5-5.1); PROTEIN TOTAL,TP 7.7 g/dL (6.4-8.2)
[2024-01-08 13:06] LABS: APPEARANCE,URINE CLEAR; BILIRUBIN,URINE NEGATIVE (NEGATIVE); COLOR,URINE YELLOW; GLUCOSE,URINE NEGATIVE (NEGATIVE); KETONES,URINE NEGATIVE (NEGATIVE); LEUKOCYTE ESTERASE,URINE NEGATIVE (NEGATIVE); NITRITE,URINE NEGATIVE (NEGATIVE); OCCULT BLOOD,URINE NEGATIVE (NEGATIVE); PROTEIN,URINE NEGATIVE (NEGATIVE); UROBILINOGEN,URINE 0.2 EU/dL (<2.0)
[2024-01-08] MEDS: traMADol 50 MG Tab PO STA (13:12)
[2024-01-08] MEDS: Iopamidol 755 MG/ML 500 ML Multipack Bottle IVPUSH STA (13:35)
[2024-01-08 15:41] VITALS: BP 143/83; PULSE 64
== END 2024-01-08 14:54 | disposition home or self-care (01) ==
LOC: MW.ED 10:37
DX: K57.30 Diverticulosis of large intestine without perforation or abscess without bleeding (principal); Z79.899 Other long term (current) drug therapy; Z75.8 Other problems related to medical facilities and other health care
CPT/HCPCS: 36415; 74177; 80053; 81003; 83690; 84703; 85025; 96361; 96374; 99284; A9270; J1885; J3490; J7030; Q9967

== ENCOUNTER 2024-02-21 10:14 | Day surgery (SDC) | payer BC ==
[~2024-02-21 10:14] MED LIST: Sodium Chloride 0.9% 10 ML Syringe FLUSH PRN; Sodium Chloride 0.9% 2.5 ML Syringe FLUSH PRN; Sodium Chloride 0.9% 20 ML SDV IV PRN
[2024-02-21] MEDS ORDERED: propofoL 50 ML ONE (11:01)
[2024-02-21] MEDS ORDERED: Ondansetron 4 MG/2 ML SDV ONE (11:29)
[2024-02-21] MEDS ORDERED: Glycopyrrolate 0.2 MG/ML SDV ONE (11:30)
[2024-02-21] MEDS: Lactated Ringers 1,000 ML IV SCH (11:35)
[2024-02-21 13:08] VITALS: BP 109/74; PULSE 59
== END 2024-02-21 12:43 | disposition home or self-care (01) ==
LOC: MW.SDS 10:14
PROVIDERS: ATTEND Surgery
DX: K31.7 Polyp of stomach and duodenum (principal); K21.9 Gastro-esophageal reflux disease without esophagitis; K57.30 Diverticulosis of large intestine without perforation or abscess without bleeding; I10 Essential (primary) hypertension; F41.9 Anxiety disorder, unspecified; F32.A Depression, unspecified; F17.290 Nicotine dependence, other tobacco product, uncomplicated; Z79.899 Other long term (current) drug therapy
CPT/HCPCS: 43239; 45380; J2405; J2704; J3490; J7120; 00813